=== PATIENT | female | born 1950 | race Asian ===

== ENCOUNTER 2016-10-06 15:00 | Inpatient (IN) | payer MEDICARE, OTHER ==
[~2016-10-06] VITALS: Ht 162.6 cm; Wt 56.7 kg
[2016-10-06 15:30] VITALS: BP 122/73
[2016-10-06] MEDS ORDERED: ACETAMINOPHEN 325 MG TABLET PO PRN ×2 (16:00)
[2016-10-06] MEDS ORDERED: DEXTROSE 50%-WATER 25 GM/50 ML SYRINGE IVP PRN (16:00)
[2016-10-06] MEDS ORDERED: DOCUSATE SODIUM 283 MG/5 ML MINI-ENEMA PR PRN (16:00)
[2016-10-06] MEDS: INSULIN ASPART 100 UNITS/ML SQ PRN ×2 (18:12→22:13)
[2016-10-06 18:37] LABS: GLUCOSE COMMENT 1 Received Meds; GLUCOSE,POINT OF CARE 154 MG/DL (70-110)
[2016-10-06 18:40] LABS: APPEARANCE,URINE CLOUDY (CLEAR); GLUCOSE, URINE (UA) NEGATIVE (NEGATIVE); KETONES,URINE NEGATIVE (NEGATIVE); LEUKOCYTE ESTERASE ,URINE LARGE (NEGATIVE); PH,URINE 5.5 (5.0-8.0); PROTEIN,URINE NEGATIVE (NEGATIVE)
[2016-10-06 18:44] LABS: OCCULT BLOOD,URINE SMALL (NEGATIVE)
[2016-10-06 18:45] LABS: SQUAMOUS EPITHELIAL CELL,UR Few /LPF (None Seen); WBC,URINE 51-100 /HPF (0-5)
[2016-10-06] MEDS: CHOLECALCIFEROL (VIT D3) 400 UNITS TABLET PO SCH (20:35)
[2016-10-06] MEDS: DOCUSATE SODIUM 100 MG CAPSULE PO SCH (20:35)
[2016-10-06] MEDS: SENNA 187 MG TABLET PO SCH (20:35)
[2016-10-06] MEDS: CALCIUM CARBONATE 648 MG TABLET PO SCH (20:35)
[2016-10-06] MEDS: DEXAMETHASONE 2 MG TABLET PO SCH (20:35)
[2016-10-06 21:32] LABS: GLUCOSE COMMENT 1 Received Meds; GLUCOSE,POINT OF CARE 170 MG/DL (70-110)
[2016-10-07 00:13] VITALS: BP 99/58
[2016-10-07 06:23] LABS: GLUCOSE,POINT OF CARE 160 MG/DL (70-110)
[2016-10-07] MEDS: CALCIUM CARBONATE 648 MG TABLET PO SCH ×2 (07:49→20:37)
[2016-10-07] MEDS: SODIUM CHLORIDE 1 GM TABLET PO SCH ×2 (07:49→20:38)
[2016-10-07] MEDS: DOCUSATE SODIUM 100 MG CAPSULE PO SCH ×2 (07:49→20:37)
[2016-10-07] MEDS: ANASTROZOLE 1 MG TABLET PO SCH (07:49)
[2016-10-07] MEDS: ESOMEPRAZOLE MAG TRIHYDRATE 20 MG CAPSULE PO SCH (07:50)
[2016-10-07] MEDS: CHOLECALCIFEROL (VIT D3) 400 UNITS TABLET PO SCH ×2 (07:50→20:37)
[2016-10-07] MEDS: INSULIN ASPART 100 UNITS/ML SQ PRN ×2 (08:04→21:52)
[2016-10-07 08:05] VITALS: BP 103/60
[2016-10-07 08:23] LABS: BASOPHILS % (AUTO) 0.2 % (0.0-2.0); EOSINOPHILS % (AUTO) 0.1 % (1.0-6.0); HEMATOCRIT 31.5 % (36-46); HEMOGLOBIN 10.5 g/dL (12.0-16.0); LYMPHOCYTES # (AUTO) 1.1 K/uL (1.0-4.8); LYMPHOCYTES % (AUTO) 9.9 % (22.0-44.0); MEAN CORPUSCULAR HEMOGLOBIN 31.1 pg (26.0-34.0); MEAN CORPUSCULAR HGB CONC 33.3 G/dL (31.0-37.0); MEAN CORPUSCULAR VOLUME 94 fL (80-100); MONOCYTES # (AUTO) 0.4 K/uL (0.1-1.0); MONOCYTES % (AUTO) 3.2 % (2.0-9.0); PLATELET COUNT (AUTO) 155 K/uL (150-450); RED BLOOD CELL COUNT(AUTO) 3.37 MIL/uL (4.00-5.20); RED CELL DISTRIBUTION WIDTH 15.4 % (11.5-14.5)
[2016-10-07 08:26] LABS: NEUTROPHILS % (AUTO) 86.6 % (40.0-70.0); WHITE BLOOD COUNT (AUTO) 13.2 K/uL (4.5-11.0)
[2016-10-07 08:32] LABS: ALANINE AMINOTRANSFERASE 44 U/L (12-78); ALBUMIN 3.3 g/dL (3.4-5.0); ANION GAP 10 mmol/L (8-16); ASPARTATE AMINOTRANSFERASE 23 U/L (15-37); BILIRUBIN,TOTAL 0.5 mg/dL (0.1-1.0); CARBON DIOXIDE 26 mmol/L (22-29); CHLORIDE 99 mmol/L (98-107); GLOMERULAR FILTR. RATE CALC > 60 mL/min (>60); POTASSIUM 4.3 mmol/L (3.5-5.1); SODIUM SERUM 135 mmol/L (136-145); TOTAL PROTEIN, SERUM 6.4 g/dL (6.4-8.2); UREA NITROGEN, BLOOD 27 mg/dL (7-18)
[2016-10-07] MEDS ORDERED: BENAZEPRIL HCL 20 MG TABLET PO SCH (09:00)
[2016-10-07] MEDS ORDERED: AmLODIPine BESYLATE 5 MG TABLET PO SCH (09:00)
[2016-10-07] MEDS ORDERED: SODIUM CHLORIDE 1 GM TABLET PO SCH (09:00)
[2016-10-07 12:32] LABS: GLUCOSE,POINT OF CARE 94 MG/DL (70-110)
[2016-10-07 16:00] VITALS: BP 97/63
[2016-10-07 19:17] LABS: GLUCOSE,POINT OF CARE 131 MG/DL (70-110)
[2016-10-07] MEDS: SENNA 187 MG TABLET PO SCH (20:37)
[2016-10-07] MEDS: DEXAMETHASONE 2 MG TABLET PO SCH (20:37)
[2016-10-07 22:02] LABS: GLUCOSE,POINT OF CARE 191 MG/DL (70-110)
[2016-10-07 23:48] VITALS: BP 122/59
[2016-10-08 06:38] LABS: GLUCOSE,POINT OF CARE 163 MG/DL (70-110)
[2016-10-08 07:50] VITALS: BP 109/61
[2016-10-08] MEDS: ANASTROZOLE 1 MG TABLET PO SCH (07:58)
[2016-10-08] MEDS: CALCIUM CARBONATE 648 MG TABLET PO SCH ×2 (07:58→20:29)
[2016-10-08] MEDS: DOCUSATE SODIUM 100 MG CAPSULE PO SCH ×2 (07:59→20:29)
[2016-10-08] MEDS: LEVOFLOXACIN 500 MG TABLET PO SCH (07:59)
[2016-10-08] MEDS: AmLODIPine BESYLATE 2.5 MG TABLET PO SCH (08:01)
[2016-10-08] MEDS: SODIUM CHLORIDE 1 GM TABLET PO SCH ×2 (08:01→20:29)
[2016-10-08] MEDS: CHOLECALCIFEROL (VIT D3) 400 UNITS TABLET PO SCH ×2 (08:02→20:29)
[2016-10-08] MEDS: ESOMEPRAZOLE MAG TRIHYDRATE 20 MG CAPSULE PO SCH (08:02)
[2016-10-08] MEDS ORDERED: LEVOFLOXACIN 250 MG TABLET PO SCH (09:00)
[2016-10-08] MEDS ORDERED: BENAZEPRIL HCL 10 MG TABLET PO SCH (09:00)
[2016-10-08 13:02] LABS: GLUCOSE,POINT OF CARE 92 MG/DL (70-110)
[2016-10-08 16:42] VITALS: BP 122/65
[2016-10-08 17:57] LABS: GLUCOSE,POINT OF CARE 115 MG/DL (70-110)
[2016-10-08] MEDS: SENNA 187 MG TABLET PO SCH (20:29)
[2016-10-08] MEDS: DEXAMETHASONE 2 MG TABLET PO SCH (20:29)
[2016-10-08] MEDS: INSULIN ASPART 100 UNITS/ML SQ PRN (20:42)
[2016-10-08 21:53] LABS: GLUCOSE,POINT OF CARE 175 MG/DL (70-110)
[2016-10-09 01:20] VITALS: BP 106/54
[2016-10-09 06:42] LABS: GLUCOSE,POINT OF CARE 138 MG/DL (70-110)
[2016-10-09 07:00] VITALS: BP 128/71
[2016-10-09] MEDS: ANASTROZOLE 1 MG TABLET PO SCH (07:49)
[2016-10-09] MEDS: CALCIUM CARBONATE 648 MG TABLET PO SCH ×2 (07:49→20:23)
[2016-10-09] MEDS: SODIUM CHLORIDE 1 GM TABLET PO SCH ×2 (07:50→20:23)
[2016-10-09] MEDS: LEVOFLOXACIN 500 MG TABLET PO SCH (07:50)
[2016-10-09] MEDS: BENAZEPRIL HCL 5 MG TABLET PO SCH (07:50)
[2016-10-09] MEDS: AmLODIPine BESYLATE 2.5 MG TABLET PO SCH (07:51)
[2016-10-09] MEDS: ESOMEPRAZOLE MAG TRIHYDRATE 20 MG CAPSULE PO SCH (07:51)
[2016-10-09] MEDS: CHOLECALCIFEROL (VIT D3) 400 UNITS TABLET PO SCH ×2 (07:54→20:23)
[2016-10-09] MEDS: DOCUSATE SODIUM 100 MG CAPSULE PO SCH ×2 (09:00→20:23)
[2016-10-09] MEDS: INSULIN ASPART 100 UNITS/ML SQ PRN ×3 (11:58→20:35)
[2016-10-09 17:13] LABS: GLUCOSE,POINT OF CARE 139 MG/DL (70-110)
[2016-10-09] MEDS: SENNA 187 MG TABLET PO SCH (20:23)
[2016-10-09 21:07] LABS: GLUCOSE,POINT OF CARE 147 MG/DL (70-110)
[2016-10-09 23:26] VITALS: BP 100/64
[2016-10-10 06:22] LABS: GLUCOSE,POINT OF CARE 115 MG/DL (70-110)
[2016-10-10 07:00] VITALS: BP 108/66
[2016-10-10] MEDS: CHOLECALCIFEROL (VIT D3) 400 UNITS TABLET PO SCH ×2 (08:22→20:47)
[2016-10-10] MEDS: DOCUSATE SODIUM 100 MG CAPSULE PO SCH ×2 (08:23→20:46)
[2016-10-10] MEDS: ANASTROZOLE 1 MG TABLET PO SCH (08:23)
[2016-10-10] MEDS: SODIUM CHLORIDE 1 GM TABLET PO SCH ×2 (08:23→20:47)
[2016-10-10] MEDS: ESOMEPRAZOLE MAG TRIHYDRATE 20 MG CAPSULE PO SCH (08:23)
[2016-10-10] MEDS: LEVOFLOXACIN 500 MG TABLET PO SCH (08:24)
[2016-10-10] MEDS: CALCIUM CARBONATE 648 MG TABLET PO SCH ×2 (08:24→20:46)
[2016-10-10] MEDS: AmLODIPine BESYLATE 2.5 MG TABLET PO SCH (08:24)
[2016-10-10] MEDS: BENAZEPRIL HCL 5 MG TABLET PO SCH (09:00)
[2016-10-10 12:22] LABS: GLUCOSE,POINT OF CARE 115 MG/DL (70-110)
[2016-10-10] MEDS: INSULIN ASPART 100 UNITS/ML SQ PRN ×3 (13:09→21:00)
[2016-10-10 16:55] VITALS: BP 108/66
[2016-10-10 17:38] LABS: GLUCOSE,POINT OF CARE 142 MG/DL (70-110)
[2016-10-10] MEDS: SENNA 187 MG TABLET PO SCH (20:47)
[2016-10-10 21:33] LABS: GLUCOSE COMMENT 1 Received Meds; GLUCOSE,POINT OF CARE 144 MG/DL (70-110)
[2016-10-11 02:00] VITALS: BP 125/63
[2016-10-11 08:00] VITALS: BP 96/63
[2016-10-11 08:08] LABS: GLUCOSE,POINT OF CARE 123 MG/DL (70-110)
[2016-10-11] MEDS: LEVOFLOXACIN 500 MG TABLET PO SCH (08:41)
[2016-10-11] MEDS: CALCIUM CARBONATE 648 MG TABLET PO SCH ×2 (08:41→20:04)
[2016-10-11] MEDS: DOCUSATE SODIUM 100 MG CAPSULE PO SCH ×2 (08:41→20:04)
[2016-10-11] MEDS: ESOMEPRAZOLE MAG TRIHYDRATE 20 MG CAPSULE PO SCH (08:42)
[2016-10-11] MEDS: SODIUM CHLORIDE 1 GM TABLET PO SCH ×2 (08:42→20:03)
[2016-10-11] MEDS: CHOLECALCIFEROL (VIT D3) 400 UNITS TABLET PO SCH ×2 (08:42→20:03)
[2016-10-11] MEDS: ANASTROZOLE 1 MG TABLET PO SCH (08:43)
[2016-10-11 13:14] VITALS: BP 126/75
[2016-10-11] MEDS: BENAZEPRIL HCL 5 MG TABLET PO SCH (13:27)
[2016-10-11] MEDS: AmLODIPine BESYLATE 2.5 MG TABLET PO SCH (13:27)
[2016-10-11 15:00] VITALS: BP 118/67
[2016-10-11 17:52] LABS: GLUCOSE,POINT OF CARE 120 MG/DL (70-110)
[2016-10-11] MEDS: SENNA 187 MG TABLET PO SCH (20:03)
[2016-10-12 02:39] VITALS: BP 110/59
[2016-10-12 06:08] LABS: GLUCOSE,POINT OF CARE 119 MG/DL (70-110)
[2016-10-12 07:30] VITALS: BP 126/68
[2016-10-12] MEDS: ANASTROZOLE 1 MG TABLET PO SCH (09:26)
[2016-10-12] MEDS: CALCIUM CARBONATE 648 MG TABLET PO SCH ×2 (09:26→20:44)
[2016-10-12] MEDS: LEVOFLOXACIN 500 MG TABLET PO SCH (09:27)
[2016-10-12] MEDS: DOCUSATE SODIUM 100 MG CAPSULE PO SCH (09:28)
[2016-10-12] MEDS: SODIUM CHLORIDE 1 GM TABLET PO SCH ×2 (09:28→20:44)
[2016-10-12] MEDS: ESOMEPRAZOLE MAG TRIHYDRATE 20 MG CAPSULE PO SCH (09:30)
[2016-10-12] MEDS: CHOLECALCIFEROL (VIT D3) 400 UNITS TABLET PO SCH ×2 (09:30→20:44)
[2016-10-12] MEDS: AmLODIPine BESYLATE 2.5 MG TABLET PO SCH (09:30)
[2016-10-12] MEDS: BENAZEPRIL HCL 5 MG TABLET PO SCH (09:35)
[2016-10-12] MEDS ORDERED: DOCUSATE SODIUM 250 MG CAPSULE PO ONE ×2 (12:00)
[2016-10-12 16:00] VITALS: BP 108/60
[2016-10-12 20:27] LABS: GLUCOSE,POINT OF CARE 97 MG/DL (70-110)
[2016-10-12] MEDS: SENNA 187 MG TABLET PO SCH (21:00)
[2016-10-12] MEDS: DOCUSATE SODIUM 250 MG CAPSULE PO SCH (21:00)
[2016-10-13 03:18] VITALS: BP 102/62
[2016-10-13 06:17] LABS: GLUCOSE,POINT OF CARE 112 MG/DL (70-110)
[2016-10-13] MEDS ORDERED: ALENDRONATE SODIUM 70 MG TABLET PO SCH (06:30)
[2016-10-13 06:42] LABS: ANION GAP 7 mmol/L (8-16); CALCIUM, TOTAL 8.3 mg/dL (8.8-10.5); CARBON DIOXIDE 30 mmol/L (22-29); CHLORIDE 104 mmol/L (98-107); CREATININE 0.76 mg/dL (0.60-1.30); GLOMERULAR FILTR. RATE CALC > 60 mL/min (>60); SODIUM SERUM 141 mmol/L (136-145); UREA NITROGEN, BLOOD 11 mg/dL (7-18)
[2016-10-13 06:49] LABS: HEMOGLOBIN A1C 6.8 % (4.5-6.2)
[2016-10-13 07:00] VITALS: BP 108/68
[2016-10-13] MEDS: CHOLECALCIFEROL (VIT D3) 400 UNITS TABLET PO SCH ×2 (08:04→20:51)
[2016-10-13] MEDS: SODIUM CHLORIDE 1 GM TABLET PO SCH ×2 (08:04→20:52)
[2016-10-13] MEDS: LEVOFLOXACIN 500 MG TABLET PO SCH (08:04)
[2016-10-13] MEDS: BENAZEPRIL HCL 5 MG TABLET PO SCH (08:04)
[2016-10-13] MEDS: ANASTROZOLE 1 MG TABLET PO SCH (08:04)
[2016-10-13] MEDS: DOCUSATE SODIUM 250 MG CAPSULE PO SCH ×3 (08:04→20:52)
[2016-10-13] MEDS: CALCIUM CARBONATE 648 MG TABLET PO SCH ×2 (08:04→20:52)
[2016-10-13] MEDS: ESOMEPRAZOLE MAG TRIHYDRATE 20 MG CAPSULE PO SCH (08:04)
[2016-10-13] MEDS: AmLODIPine BESYLATE 2.5 MG TABLET PO SCH (08:05)
[2016-10-13 17:49] VITALS: BP 108/66
[2016-10-13 18:28] LABS: GLUCOSE,POINT OF CARE 106 MG/DL (70-110)
[2016-10-13] MEDS: SENNA 187 MG TABLET PO SCH (20:51)
[2016-10-13] MEDS ORDERED: METF500T4 PO ×2 (21:58→22:05)
[2016-10-13] MEDS ORDERED: ESOM40CA54 PO (21:58)
[2016-10-13] MEDS ORDERED: CALC-997 PO (22:00)
[2016-10-13] MEDS ORDERED: BENA5TAB26 PO (22:04)
[2016-10-13] MEDS ORDERED: VITAD400 PO (22:04)
[2016-10-13] MEDS ORDERED: AMLO2.5T PO (22:04)
[2016-10-13] MEDS ORDERED: ALEN70TA48 PO (22:04)
[2016-10-13] MEDS ORDERED: ANAS1TAB49 PO (22:04)
[2016-10-13] MEDS ORDERED: ALEN70SO3 PO (22:04)
[2016-10-13] MEDS ORDERED: DOCU250C91 PO (22:04)
[2016-10-14 06:00] VITALS: BP 104/61
[2016-10-14 06:17] LABS: GLUCOSE,POINT OF CARE 119 MG/DL (70-110)
[2016-10-14 07:00] VITALS: BP 103/62
[2016-10-14] MEDS: DOCUSATE SODIUM 250 MG CAPSULE PO SCH ×2 (07:29→09:00)
[2016-10-14] MEDS: SODIUM CHLORIDE 1 GM TABLET PO SCH (07:29)
[2016-10-14] MEDS: ESOMEPRAZOLE MAG TRIHYDRATE 20 MG CAPSULE PO SCH (07:29)
[2016-10-14] MEDS: CHOLECALCIFEROL (VIT D3) 400 UNITS TABLET PO SCH (07:29)
[2016-10-14] MEDS: BENAZEPRIL HCL 5 MG TABLET PO SCH (07:29)
[2016-10-14] MEDS: CALCIUM CARBONATE 648 MG TABLET PO SCH (07:29)
[2016-10-14] MEDS: LEVOFLOXACIN 500 MG TABLET PO SCH (07:29)
[2016-10-14] MEDS: AmLODIPine BESYLATE 2.5 MG TABLET PO SCH (07:29)
[2016-10-14] MEDS ORDERED: MetFORMIN HCL 500 MG TABLET PO SCH (07:30)
[2016-10-14] MEDS: ANASTROZOLE 1 MG TABLET PO SCH (07:35)
== END 2016-10-14 08:00 | disposition home or self-care (01) | DRG 57 ==
LOC: 2WR 15:00
PROVIDERS: ADMIT Physical Medicine & Rehabilitation; ATTEND Physical Medicine & Rehabilitation
DX: I69.351 Hemiplegia and hemiparesis following cerebral infarction affecting right dominant side (principal); C79.31 Secondary malignant neoplasm of brain; C50.919 Malignant neoplasm of unspecified site of unspecified female breast; E87.1 Hypo-osmolality and hyponatremia; Q78.2 Osteopetrosis; E11.65 Type 2 diabetes mellitus with hyperglycemia; N39.0 Urinary tract infection, site not specified; I10 Essential (primary) hypertension; D64.9 Anemia, unspecified; E55.9 Vitamin D deficiency, unspecified; E78.5 Hyperlipidemia, unspecified; K21.9 Gastro-esophageal reflux disease without esophagitis; K59.00 Constipation, unspecified; M81.0 Age-related osteoporosis without current pathological fracture; Z79.4 Long term (current) use of insulin; Z79.811 Long term (current) use of aromatase inhibitors; Z85.3 Personal history of malignant neoplasm of breast; Z85.42 Personal history of malignant neoplasm of other parts of uterus; Z88.0 Allergy status to penicillin; Z87.440 Personal history of urinary (tract) infections; Z90.12 Acquired absence of left breast and nipple; Z90.710 Acquired absence of both cervix and uterus; Z98.2 Presence of cerebrospinal fluid drainage device; Z90.49 Acquired absence of other specified parts of digestive tract; Z90.722 Acquired absence of ovaries, bilateral; R26.9 Unspecified abnormalities of gait and mobility; R41.82 Altered mental status, unspecified; R51 Headache; B96.20 Unspecified Escherichia coli [E. coli] as the cause of diseases classified elsewhere
CPT/HCPCS: 82962; 83036; 87081; 87086; 92507; 92508; 92523; 93970; 97110; 97112; 97116; 97150; 97163; 97166; 97530; 97535; 99366; J8540

== ENCOUNTER 2018-03-18 12:58 | Inpatient (IN) | payer MEDICARE, OTHER ==
[~2018-03-18] VITALS: Ht 160 cm; Wt 56.7 kg
[~2018-03-18 12:58] MED LIST: ALEN70TA10 PO; AMLO2.5T4 PO; ANAS1TAB50 PO; ATROPINE SULFATE 0.1 MG/ML 10 ML SYRINGE IVP ONE; BENA5TAB26 PO; CALC-997 PO; CALCIUM GLUCONATE 100 MG/ML 10 ML IVP ONE; DEXTROSE 50%-WATER 25 GM/50 ML SYRINGE IVP ONE; DOCU250C91 PO; DOPamine HCL/D5W 400 MG/250 ML IV BAG IV ONE; EPINEPHrine 1:10,000 [1 MG/10 ML] SYRINGE IVP ONE; ESOM40CA54 PO; ETOMIDATE 2 MG/ML 10 ML VIAL IVP ONE; METF-960 PO; SODIUM BICARBONATE [ADULT] 8.4% 50 MEQ/50 ML SYRINGE IVP ONE; SUCCINYLCHOLINE CHLORIDE 20 MG/ML 10 ML VIAL IVP ONE; VITAD400 PO
[2018-03-18] MEDS ORDERED: RAPID SEQUENCE KIT [RSI] 1 EACH KIT ONE (13:26)
[2018-03-18] MEDS ORDERED: SUCCINYLCHOLINE CHLORIDE 20 MG/ML 10 ML VIAL ONE (13:26)
[2018-03-18] MEDS ORDERED: LAPA250T PO (13:38)
[2018-03-18] MEDS ORDERED: ASCO1TAB40 PO (13:38)
[2018-03-18] MEDS ORDERED: CAPE500 PO (13:38)
[2018-03-18] MEDS ORDERED: SODIUM CHLORIDE 0.9% 1,000 ML IV ONE ×4 (13:45→15:30)
[2018-03-18] MEDS ORDERED: MIDAZOLAM HCL 2 MG/2 ML VIAL IVP ONE (14:00)
[2018-03-18 14:02] LABS: ABG BASE EXCESS -0.8 mmol/L (-2.0-3.0); ABG CARBOXYHEMOGLOBIN 0.3 % (0.0-1.5); ABG HCO3 23.3 mmol/L (22.0-26.0); ABG METHEMOGLOBIN 0.3 % (0.0-1.5); ABG OXYGEN SATURATION 98.3 % (95.0-98.0); ABG OXYHEMOGLOBIN 97.7 % (94.0-100.0); ABG PCO2 62 mmHg (35-45); ABG PH 7.247 (7.35-7.450); ABG TOTAL HEMOGLOBIN 9.9 G/dL (12.0-18.0); O2 DEVICE,BLOOD GAS VENTILATOR (ROOM AIR); PEEP,BG 5 cm H2O; PO2, ARTERIAL BG 171.8 mmHg (79.0-87.0); SITE, BLOOD GAS RT RADIAL; SOURCE, BLOOD GAS ARTERIAL; TEMPERATURE, FAHRENHEIT, BG 98.6 FAHREN (96.0-98.6); VT, ABG 450 ml
[2018-03-18 14:03] LABS: HEMATOCRIT 40.7 % (36-46); HEMOGLOBIN 13.1 g/dL (12.0-16.0); MEAN CORPUSCULAR HEMOGLOBIN 35.6 pg (26.0-34.0); MEAN CORPUSCULAR HGB CONC 32.2 G/dL (31.0-37.0); MEAN CORPUSCULAR VOLUME 111 fL (80-100); PLATELET COUNT (AUTO) 221 K/uL (150-450); RED BLOOD CELL COUNT(AUTO) 3.68 MIL/uL (4.00-5.20); RED CELL DISTRIBUTION WIDTH 15.4 % (11.5-14.5)
[2018-03-18 14:20] LABS: PROTHROMBIN TIME 10.7 SEC (9.4-11.6)
[2018-03-18 14:31] LABS: BAND NEUTROPHILS % (MANUAL) 20 % (0-5); LYMPHOCYTES % (MANUAL) 9 % (22-44); MONOCYTES % (MANUAL) 5 % (2-9); SEGMENTED NEUTROPHILS % 66 % (40-70)
[2018-03-18] MEDS ORDERED: DEXTROSE 50%-WATER 25 GM/50 ML SYRINGE IVP ONE (14:45)
[2018-03-18] MEDS ORDERED: EPINEPHrine 1:10,000 [1 MG/10 ML] SYRINGE IVP ONE (14:45)
[2018-03-18] MEDS: NOREPINEPHRINE 4 MG/D5%-WATER 250 ML IV PRN ×3 (14:54→23:37)
[2018-03-18] MEDS: PHENYLEPHRINE 200 MG/D5%-WATER 250 ML IV PRN (14:54)
[2018-03-18] MEDS: DOPamine HCL 400 MG/D5%-WATER 250 ML IV PRN ×3 (14:54→20:52)
[2018-03-18] MEDS: EPINEPHrine 2 MG in DEXTROSE 5%-WATER 248 ML IV PRN ×2 (15:14→18:33)
[2018-03-18] MEDS ORDERED: *CLINICAL-CEFEPIME DOSING CLINICAL ONE ×2 (15:15→19:00)
[2018-03-18] MEDS ORDERED: VANCOMYCIN HCL 1 GM/D5% WATER 200 ML IV ONE (15:30)
[2018-03-18 15:33] LABS: LACTIC ACID 7.8 mmol/L (0.4-2.0)
[2018-03-18 15:34] LABS: TROPONIN I 0.04 ng/mL (0.00-0.05)
[2018-03-18 15:45] LABS: CREATININE 2.29 mg/dL (0.60-1.30)
[2018-03-18 15:47] LABS: POTASSIUM 2.3 mmol/L (3.5-5.1)
[2018-03-18] MEDS ORDERED: POTASSIUM CHL 20 MEQ/0.9% NS 1,000 ML IV ONE (16:00)
[2018-03-18 16:10] LABS: ALBUMIN 1.6 g/dL (3.4-5.0); BILIRUBIN,TOTAL 0.6 mg/dL (0.1-1.0); TOTAL PROTEIN, SERUM 3.7 g/dL (6.4-8.2)
[2018-03-18 16:40] LABS: ALBUMIN 1.8 g/dL (3.4-5.0); BILIRUBIN,TOTAL 0.8 mg/dL (0.1-1.0); CALCIUM, TOTAL 7.5 mg/dL (8.8-10.5); CREATININE 2.41 mg/dL (0.60-1.30); TOTAL PROTEIN, SERUM 4.8 g/dL (6.4-8.2)
[2018-03-18] MEDS ORDERED: ATROPINE SULFATE 0.1 MG/ML 10 ML SYRINGE IVP ONE (16:45)
[2018-03-18 16:47] LABS: POTASSIUM 2.3 mmol/L (3.5-5.1)
[2018-03-18] MEDS ORDERED: CEFEPIME HCL 2 GM in DEXTROSE 5%-WATER 50 ML IV ONE ×2 (17:00→21:00)
[2018-03-18] MEDS ORDERED: ACETAMINOPHEN 325 MG TABLET PO PRN (17:15)
[2018-03-18] MEDS ORDERED: 0.9% SODIUM CHLORIDE 10 ML SYRINGE IVP PRN (17:15)
[2018-03-18] MEDS ORDERED: ONDANSETRON HCL 4 MG/2 ML VIAL IVP PRN (17:15)
[2018-03-18] MEDS: VASOPRESSIN 40 UNITS in DEXTROSE 5%-WATER 98 ML IV PRN (17:30)
[2018-03-18 20:46] LABS: ABG A-A DIFF O2 641.8 mmHg (10-20.0); ABG BASE EXCESS -15.8 mmol/L (-2.0-3.0); ABG CARBOXYHEMOGLOBIN 0.3 % (0.0-1.5); ABG HCO3 12.8 mmol/L (22.0-26.0); ABG METHEMOGLOBIN 0.3 % (0.0-1.5); ABG OXYGEN CONTENT 16.6 mL/dL (15.0-23.0); ABG OXYHEMOGLOBIN 90.5 % (94.0-100.0); ABG PCO2 34 mmHg (35-45); PO2, ARTERIAL BG 51.1 mmHg (79.0-87.0); SOURCE, BLOOD GAS ARTERIAL; TEMPERATURE, FAHRENHEIT, BG 87.2 FAHREN (96.0-98.6)
[2018-03-18 20:47] LABS: ABG PH 7.187 (7.35-7.450); SITE, BLOOD GAS RT RADIAL
[2018-03-18 20:48] LABS: O2 DEVICE,BLOOD GAS VENTILATOR (ROOM AIR); PEEP,BG 5 cm H2O; VT, ABG 450 ml
[2018-03-18 21:00] VITALS: BP 107/86
[2018-03-18] MEDS: SODIUM BICARBONATE 150 MEQ in DEXTROSE 5%-WATER 1,000 ML IV SCH (21:35)
[2018-03-18] MEDS: HYDROCORTISONE SOD SUCC 100 MG/2 ML VIAL IVP SCH (21:36)
[2018-03-18] MEDS ORDERED: SODIUM CHLORIDE 0.9% 250 ML IV ONE (21:40)
[2018-03-18 21:53] LABS: CALCIUM, TOTAL 7.3 mg/dL (8.8-10.5); CREATININE 2.46 mg/dL (0.60-1.30)
[2018-03-18 22:07] LABS: POTASSIUM 2.4 mmol/L (3.5-5.1)
[2018-03-18] MEDS ORDERED: INSULIN REGULAR, HUMAN 100 UNITS in SODIUM CHLORIDE 0.9% 99 ML IV PRN ×2 (22:11)
[2018-03-18] MEDS ORDERED: SODIUM CHLORIDE 0.45% 1,000 ML IV PRN (22:11)
[2018-03-18] MEDS ORDERED: POTASSIUM CHL 20 MEQ/0.45% NS 1,000 ML IV PRN (22:11)
[2018-03-18] MEDS ORDERED: DEXTROSE 5%-0.45% SODIUM CHL 1,000 ML IV PRN (22:11)
[2018-03-18] MEDS ORDERED: POTASSIUM CHLORIDE 40 MEQ in SODIUM CHLORIDE 0.45% 1,000 ML IV PRN (22:11)
[2018-03-18] MEDS ORDERED: DEXTROSE 50%-WATER 25 GM/50 ML SYRINGE IVP PRN (22:15)
[2018-03-18 22:16] LABS: ABG A-A DIFF O2 615.1 mmHg (10-20.0); ABG BASE EXCESS -15.8 mmol/L (-2.0-3.0); ABG CARBOXYHEMOGLOBIN 0.3 % (0.0-1.5); ABG METHEMOGLOBIN 0.3 % (0.0-1.5); ABG OXYGEN CONTENT 17.2 mL/dL (15.0-23.0); ABG OXYGEN SATURATION 96.1 % (95.0-98.0); ABG OXYHEMOGLOBIN 95.5 % (94.0-100.0); ABG PCO2 33 mmHg (35-45); ABG TOTAL HEMOGLOBIN 12.7 G/dL (12.0-18.0); PO2, ARTERIAL BG 75.8 mmHg (79.0-87.0); SOURCE, BLOOD GAS ARTERIAL; TEMPERATURE, FAHRENHEIT, BG 90.1 FAHREN (96.0-98.6)
[2018-03-18 22:17] LABS: ABG PH 7.195 (7.35-7.450); SITE, BLOOD GAS ARTERIAL LINE
[2018-03-18 22:18] LABS: O2 DEVICE,BLOOD GAS VENTILATOR (ROOM AIR); PEEP,BG 12 cm H2O; VT, ABG 450 ml
[2018-03-18] MEDS: POTASSIUM CHL 10 MEQ/WATER 50 ML IV SCH ×2 (22:47→23:24)
[2018-03-18 23:11] LABS: AMPHET/METH SCREEN,URINE NEGATIVE (NEGATIVE); BARBITURATE SCREEN, URINE NEGATIVE (NEGATIVE); BENZODIAZEPINES SCREEN,URINE POSITIVE (NEGATIVE); CANNABINOID SCREEN,URINE NEGATIVE (NEGATIVE); COCAINE SCREEN,URINE NEGATIVE (NEGATIVE); METHADONE SCREEN, URINE NEGATIVE (NEGATIVE); OPIATE SCREEN,URINE POSITIVE (NEGATIVE)
[2018-03-18 23:12] LABS: PHENCYCLIDINE SCREEN,URINE NEGATIVE (NEGATIVE)
[2018-03-18 23:13] LABS: APPEARANCE,URINE CLOUDY (CLEAR); BILIRUBIN,URINE NEGATIVE (NEGATIVE); GLUCOSE, URINE (UA) >=1000 mg/dL (NEGATIVE); KETONES,URINE NEGATIVE (NEGATIVE); LEUKOCYTE ESTERASE ,URINE NEGATIVE (NEGATIVE); NITRATE,URINE NEGATIVE (NEGATIVE); OCCULT BLOOD,URINE MODERATE (NEGATIVE); PROTEIN,URINE NEGATIVE (NEGATIVE); UROBILINOGEN,URINE 0.2 mg/dL (<=1.0)
[2018-03-18] MEDS: INSULIN REGULAR, HUMAN 100 UNITS/ML IVP PRN (23:23)
[2018-03-18 23:25] LABS: BACTERIA,URINE None Seen /HPF (None Seen); SQUAMOUS EPITHELIAL CELL,UR Few /LPF (None Seen); WBC,URINE 0-2 /HPF (0-5)
[2018-03-19] VITALS: BP 84/47
[2018-03-19] MEDS: INSULIN REGULAR, HUMAN 100 UNITS/ML IVP PRN ×16 (00:09→19:31)
[2018-03-19] MEDS: POTASSIUM CHL 10 MEQ/WATER 50 ML IV SCH ×2 (00:09→01:06)
[2018-03-19] MEDS ORDERED: POTASSIUM CHL 20 MEQ/0.45% NS 1,000 ML IV PRN (00:32)
[2018-03-19] MEDS ORDERED: POTASSIUM CHLORIDE 40 MEQ in SODIUM CHLORIDE 0.45% 1,000 ML IV PRN (00:32)
[2018-03-19] MEDS ORDERED: SODIUM CHLORIDE 0.9% 1,000 ML IV SCH (00:32)
[2018-03-19] MEDS ORDERED: INSULIN REGULAR, HUMAN 100 UNITS in SODIUM CHLORIDE 0.9% 99 ML IV PRN ×2 (00:32)
[2018-03-19] MEDS ORDERED: SODIUM CHLORIDE 0.45% 1,000 ML IV PRN (00:32)
[2018-03-19] MEDS ORDERED: DEXTROSE 5%-0.45% SODIUM CHL 1,000 ML IV PRN (00:32)
[2018-03-19] MEDS ORDERED: ALBUTEROL SULFATE 2.5 MG/0.5 ML NEB SOLUTION NEB PRN (00:45)
[2018-03-19] MEDS ORDERED: BISACODYL 10 MG RECTAL RECTAL SUPPOSITORY PR PRN (00:45)
[2018-03-19] MEDS ORDERED: INSULIN REGULAR, HUMAN 100 UNITS/ML IVP ONE (00:45)
[2018-03-19] MEDS ORDERED: DEXTROSE 50%-WATER 25 GM/50 ML SYRINGE IVP PRN (00:45)
[2018-03-19] MEDS ORDERED: HYDROCODONE/ACETAMINOPHEN 5-325 MG TABLET PO PRN (00:45)
[2018-03-19] MEDS ORDERED: ZOLPIDEM TARTRATE 5 MG TABLET PO PRN (00:45)
[2018-03-19] MEDS ORDERED: MAGNESIUM HYDROXIDE SUSPENSION 30 ML UDCUP PO PRN (00:45)
[2018-03-19] MEDS ORDERED: IPRATROPIUM BROMIDE 0.5 MG/2.5 ML NEB SOLUTION NEB PRN (00:45)
[2018-03-19] MEDS ORDERED: MORPHINE SULFATE 4 MG/ML SYRINGE IVP PRN (00:45)
[2018-03-19] MEDS ORDERED: ONDANSETRON HCL 4 MG/2 ML VIAL IVP PRN (00:45)
[2018-03-19] MEDS ORDERED: ACETAMINOPHEN 325 MG TABLET PO PRN (00:45)
[2018-03-19 01:19] LABS: GLUCOSE,POINT OF CARE 444 MG/DL (70-110)
[2018-03-19 01:19] LABS: GLUCOSE,POINT OF CARE 393 MG/DL (70-110)
[2018-03-19 01:21] LABS: CALCIUM, TOTAL 6.9 mg/dL (8.8-10.5); CREATININE 2.23 mg/dL (0.60-1.30); POTASSIUM 3.1 mmol/L (3.5-5.1)
[2018-03-19] MEDS: DOPamine HCL 400 MG/D5%-WATER 250 ML IV PRN ×4 (02:02→19:02)
[2018-03-19] MEDS: EPINEPHrine 2 MG in DEXTROSE 5%-WATER 248 ML IV PRN ×4 (02:44→11:27)
[2018-03-19] MEDS: NOREPINEPHRINE 4 MG/D5%-WATER 250 ML IV PRN ×5 (03:10→19:33)
[2018-03-19 03:19] LABS: GLUCOSE,POINT OF CARE 276 MG/DL (70-110)
[2018-03-19 03:19] LABS: GLUCOSE,POINT OF CARE 342 MG/DL (70-110)
[2018-03-19 04:00] VITALS: BP 91/46
[2018-03-19] MEDS: PHENYLEPHRINE 200 MG/D5%-WATER 250 ML IV PRN ×2 (05:00→16:03)
[2018-03-19 05:08] LABS: HEMATOCRIT 33.8 % (36-46); HEMOGLOBIN 10.9 g/dL (12.0-16.0); MEAN CORPUSCULAR HEMOGLOBIN 35.2 pg (26.0-34.0); MEAN CORPUSCULAR HGB CONC 32.3 G/dL (31.0-37.0); MEAN CORPUSCULAR VOLUME 109 fL (80-100); PLATELET COUNT (AUTO) 124 K/uL (150-450)
[2018-03-19 05:09] LABS: GLUCOSE,POINT OF CARE 331 MG/DL (70-110)
[2018-03-19 05:20] LABS: ALBUMIN 1.6 g/dL (3.4-5.0); BILIRUBIN,TOTAL 0.6 mg/dL (0.1-1.0); CALCIUM, TOTAL 7.1 mg/dL (8.8-10.5); CREATININE 2.2 mg/dL (0.60-1.30); MAGNESIUM 1.2 mg/dL (1.80-2.40); TOTAL PROTEIN, SERUM 4.5 g/dL (6.4-8.2)
[2018-03-19 05:32] LABS: PHOSPHORUS 1.2 mg/dL (2.5-4.9); POTASSIUM 2.7 mmol/L (3.5-5.1)
[2018-03-19] MEDS: HYDROCORTISONE SOD SUCC 100 MG/2 ML VIAL IVP SCH ×4 (05:59→18:08)
[2018-03-19] MEDS: VASOPRESSIN 40 UNITS in DEXTROSE 5%-WATER 98 ML IV PRN (05:59)
[2018-03-19 06:15] LABS: GLUCOSE,POINT OF CARE 273 MG/DL (70-110)
[2018-03-19 06:15] LABS: GLUCOSE,POINT OF CARE 376 MG/DL (70-110)
[2018-03-19] MEDS ORDERED: POTASSIUM CHLORIDE 10% 40 MEQ/30 ML LIQUID UDCUP NG ONE ×2 (06:15→16:00)
[2018-03-19] MEDS ORDERED: MAGNESIUM SULFATE 4 GM/WATER 100 ML IV ONE (06:15)
[2018-03-19] MEDS ORDERED: SODIUM PHOS,M-BASIC-D-BASIC 30 MMOL in DEXTROSE 5%-WATER 250 ML IV ONE (06:30)
[2018-03-19 06:34] LABS: GLUCOSE,POINT OF CARE 254 MG/DL (70-110)
[2018-03-19 06:47] LABS: BAND NEUTROPHILS % (MANUAL) 23 % (0-5); CORRECTED WHITE BLOOD COUNT 1.8 K/uL (4.5-11.0); LYMPHOCYTES % (MANUAL) 18 % (22-44); MONOCYTES % (MANUAL) 4 % (2-9); MYELOCYTES % 1 % (0-0); SEGMENTED NEUTROPHILS % 54 % (40-70)
[2018-03-19 06:48] LABS: PLATELET MORPHOLOGY COMMENT GIANT PLTS PRESENT
[2018-03-19 06:49] LABS: PATHOLOGY REVIEW, DIFF YES
[2018-03-19 07:28] LABS: GLUCOSE,POINT OF CARE 256 MG/DL (70-110)
[2018-03-19 07:50] LABS: ABG A-A DIFF O2 616.8 mmHg (10-20.0); ABG BASE EXCESS -12.5 mmol/L (-2.0-3.0); ABG CARBOXYHEMOGLOBIN 0.3 % (0.0-1.5); ABG HCO3 15.3 mmol/L (22.0-26.0); ABG METHEMOGLOBIN 0.3 % (0.0-1.5); ABG OXYGEN CONTENT 14.2 mL/dL (15.0-23.0); ABG OXYGEN SATURATION 89.7 % (95.0-98.0); ABG OXYHEMOGLOBIN 89.2 % (94.0-100.0); ABG PCO2 34 mmHg (35-45); ABG PH 7.256 (7.35-7.450); ABG TOTAL HEMOGLOBIN 11.3 G/dL (12.0-18.0); PO2, ARTERIAL BG 61.9 mmHg (79.0-87.0); SOURCE, BLOOD GAS ARTERIAL; TEMPERATURE, FAHRENHEIT, BG 99.2 FAHREN (96.0-98.6)
[2018-03-19 07:51] LABS: SITE, BLOOD GAS A LINE
[2018-03-19 07:52] LABS: O2 DEVICE,BLOOD GAS VENTILATOR (ROOM AIR); PEEP,BG 10 cm H2O; SPONTANEOUS VT, BG 770 ml; VT, ABG 450 ml
[2018-03-19 08:00] VITALS: BP 80/41
[2018-03-19] MEDS ORDERED: PANTOPRAZOLE SODIUM 40 MG/VIAL IVP SCH (09:00)
[2018-03-19] MEDS ORDERED: DOCUSATE SODIUM 100 MG CAPSULE PO SCH (09:00)
[2018-03-19 09:27] LABS: CALCIUM, TOTAL 6.8 mg/dL (8.8-10.5); CREATININE 2.05 mg/dL (0.60-1.30)
[2018-03-19 09:33] LABS: POTASSIUM 2.8 mmol/L (3.5-5.1)
[2018-03-19] MEDS ORDERED: VANCOMYCIN HCL 1 GM/D5% WATER 200 ML IV ONE (10:30)
[2018-03-19] MEDS ORDERED: EPINEPHrine 1:10,000 [1 MG/10 ML] SYRINGE IVP ONE (10:46)
[2018-03-19] MEDS ORDERED: DOPamine HCL/D5W 400 MG/250 ML IV BAG IV ONE (10:46)
[2018-03-19] MEDS ORDERED: CALCIUM GLUCONATE 100 MG/ML 10 ML IVP ONE (10:46)
[2018-03-19] MEDS ORDERED: DEXTROSE 50%-WATER 25 GM/50 ML SYRINGE IVP ONE (10:46)
[2018-03-19] MEDS ORDERED: SODIUM BICARBONATE [ADULT] 8.4% 50 MEQ/50 ML SYRINGE IVP ONE (10:46)
[2018-03-19] MEDS ORDERED: ATROPINE SULFATE 0.1 MG/ML 10 ML SYRINGE IVP ONE (10:46)
[2018-03-19] MEDS: HEPARIN SODIUM,PORCINE 5,000 UNITS/ML VIAL SQ SCH ×2 (10:59→18:09)
[2018-03-19] MEDS ORDERED: SODIUM CHLORIDE 0.9% 250 ML IV ONE (11:37)
[2018-03-19 11:44] LABS: GLUCOSE,POINT OF CARE 261 MG/DL (70-110)
[2018-03-19 11:44] LABS: GLUCOSE,POINT OF CARE 235 MG/DL (70-110)
[2018-03-19 11:44] LABS: GLUCOSE,POINT OF CARE 258 MG/DL (70-110)
[2018-03-19 12:00] VITALS: BP 72/36
[2018-03-19 12:13] LABS: ABG A-A DIFF O2 636.1 mmHg (10-20.0); ABG BASE EXCESS -13.7 mmol/L (-2.0-3.0); ABG CARBOXYHEMOGLOBIN 0.3 % (0.0-1.5); ABG HCO3 14.4 mmol/L (22.0-26.0); ABG METHEMOGLOBIN 0.3 % (0.0-1.5); ABG OXYGEN CONTENT 12.3 mL/dL (15.0-23.0); ABG OXYHEMOGLOBIN 79.2 % (94.0-100.0); ABG PCO2 30 mmHg (35-45); ABG PH 7.262 (7.35-7.450); PO2, ARTERIAL BG 46.4 mmHg (79.0-87.0); SOURCE, BLOOD GAS ARTERIAL; TEMPERATURE, FAHRENHEIT, BG 98.7 FAHREN (96.0-98.6)
[2018-03-19 12:15] LABS: ABG OXYGEN SATURATION 79.7 % (95.0-98.0); O2 DEVICE,BLOOD GAS VENTILATOR (ROOM AIR)
[2018-03-19 12:16] LABS: PEEP,BG 12 cm H2O; SPONTANEOUS VT, BG 748 ml; VT, ABG 350 ml
[2018-03-19] MEDS ORDERED: FentaNYL CITRATE PF 500 MCG in DEXTROSE 5%-WATER 90 ML IV PRN (12:30)
[2018-03-19] MEDS ORDERED: PROPOFOL 1000 MG/ISO-OSM 100 ML IV PRN (12:30)
[2018-03-19] MEDS: CALCIUM GLUCONATE 1,000 MG in DEXTROSE 5%-WATER 50 ML IV SCH ×2 (12:41→18:08)
[2018-03-19] MEDS: SODIUM BICARBONATE 150 MEQ in DEXTROSE 5%-WATER 1,000 ML IV SCH (12:42)
[2018-03-19 12:45] LABS: CALCIUM, TOTAL 6.8 mg/dL (8.8-10.5); CREATININE 1.94 mg/dL (0.60-1.30)
[2018-03-19 12:53] LABS: POTASSIUM 2.7 mmol/L (3.5-5.1)
[2018-03-19 13:00] LABS: GLUCOSE,POINT OF CARE 301 MG/DL (70-110)
[2018-03-19 13:00] LABS: GLUCOSE,POINT OF CARE 275 MG/DL (70-110)
[2018-03-19] MEDS ORDERED: POTASSIUM PHOS,M-BASIC-D-BASIC 15 MEQ in DEXTROSE 5%-WATER 50 ML IV ONE (15:00)
[2018-03-19 16:00] VITALS: BP 69/36
[2018-03-19 16:11] LABS: CALCIUM, TOTAL 6.9 mg/dL (8.8-10.5); CREATININE 1.95 mg/dL (0.60-1.30); MAGNESIUM 2.1 mg/dL (1.80-2.40); PHOSPHORUS 5.3 mg/dL (2.5-4.9)
[2018-03-19 16:24] LABS: POTASSIUM 2.8 mmol/L (3.5-5.1)
[2018-03-19 17:34] LABS: GLUCOSE,POINT OF CARE 296 MG/DL (70-110)
[2018-03-19 17:34] LABS: GLUCOSE,POINT OF CARE 255 MG/DL (70-110)
[2018-03-19 17:34] LABS: GLUCOSE,POINT OF CARE 244 MG/DL (70-110)
[2018-03-19 17:34] LABS: GLUCOSE,POINT OF CARE 275 MG/DL (70-110)
[2018-03-19] MEDS ORDERED: POTASSIUM CITRATE 5 MEQ ER TABLET PO SCH (18:00)
[2018-03-19] MEDS ORDERED: SODIUM CHLORIDE 0.45% IV SCH (18:00)
[2018-03-19] MEDS ORDERED: POTASSIUM CHLORIDE IV SCH (18:00)
[2018-03-19] MEDS ORDERED: SODIUM BICARBONATE IV SCH (18:00)
[2018-03-19 20:00] VITALS: BP 51/32
[2018-03-19] MEDS ORDERED: CEFEPIME HCL 1 GM in DEXTROSE 5%-WATER 50 ML IV SCH (21:00)
[2018-03-19 21:58] LABS: CREATININE,URINE RANDOM 46.8 mg/dL (30.0-125.0); MAGNESIUM,URINE RANDOM 5.7 mg/dL (1.0-13.0)
[2018-03-20 06:20] LABS: GLUCOSE,POINT OF CARE 242 MG/DL (70-110)
[2018-03-20 06:20] LABS: GLUCOSE,POINT OF CARE 317 MG/DL (70-110)
[2018-03-20 06:20] LABS: GLUCOSE,POINT OF CARE 220 MG/DL (70-110)
[2018-03-20 06:20] LABS: GLUCOSE,POINT OF CARE 231 MG/DL (70-110)
[2018-03-20] MEDS ORDERED: VANCOMYCIN HCL 500 MG in DEXTROSE 5%-WATER 100 ML IV SCH (08:00)
== END 2018-03-19 21:00 | disposition expired | DRG 871 ==
LOC: EMS 12:59 → ICU 16:24
PROVIDERS: ADMIT Hospitalist; ATTEND Hospitalist
PROC: 5A1945Z Respiratory Ventilation, 24-96 Consecutive Hours (ICD-10-PCS; principal; 2018-03-18)
PROC: 0BH17EZ Insertion of Endotracheal Airway into Trachea, Via Natural or Artificial Opening (ICD-10-PCS; 2018-03-18)
PROC: 02HV33Z Insertion of Infusion Device into Superior Vena Cava, Percutaneous Approach (ICD-10-PCS; 2018-03-18)
DX: A41.9 Sepsis, unspecified organism (principal); J96.01 Acute respiratory failure with hypoxia; J69.0 Pneumonitis due to inhalation of food and vomit; E43 Unspecified severe protein-calorie malnutrition; E11.10 Type 2 diabetes mellitus with ketoacidosis without coma; K85.90 Acute pancreatitis without necrosis or infection, unspecified; K72.00 Acute and subacute hepatic failure without coma; R65.21 Severe sepsis with septic shock; C79.31 Secondary malignant neoplasm of brain; E87.0 Hyperosmolality and hypernatremia; G93.40 Encephalopathy, unspecified; E87.6 Hypokalemia; K29.80 Duodenitis without bleeding; Z68.22 Body mass index [BMI] 22.0-22.9, adult; Z88.0 Allergy status to penicillin; E83.42 Hypomagnesemia; E83.51 Hypocalcemia; I10 Essential (primary) hypertension; I46.2 Cardiac arrest due to underlying cardiac condition; I49.01 Ventricular fibrillation; M81.0 Age-related osteoporosis without current pathological fracture; Z51.5 Encounter for palliative care; Z85.3 Personal history of malignant neoplasm of breast; Z85.42 Personal history of malignant neoplasm of other parts of uterus; Z90.710 Acquired absence of both cervix and uterus; Z92.3 Personal history of irradiation; Z98.2 Presence of cerebrospinal fluid drainage device
CPT/HCPCS: 31500; 36556; 36600; 51701; 70450; 71250; 72192; 74150; 82570; 82805; 82948; 83605; 83735; 84100; 84133; 84156; 84166; 84300; 87040; 87070; 87081; 87205; 93005; 94002; 94003; 96361; 96374; 99291; C9113; G0378; J0171; J0330; J0461; J0610; J0692; J1265; J1644; J1720; J1815; J2250; J2370; J2704; J3010; J3370; J3475; J3480; J3490; J7050; J7060